=== PATIENT | female | born 1970 | race Caucasian/White ===

== ENCOUNTER → 2024-03-29 | Outpatient (REF) | payer BC ==
[2024-03-29 12:30] LABS: HEMATOCRIT 39.7 % (36.0-47.0); HEMOGLOBIN 13.4 g/dl (12.0-15.5); MEAN CORPUSCULAR HEMOGLOBIN 31.8 pg (27.0-33.0); MEAN CORPUSCULAR HGB CONC 33.8 g/dl (32.0-36.5); MEAN CORPUSCULAR VOLUME 94.1 fl (80.0-96.0); PLATELET COUNT, AUTOMATED 344 10^3/uL (150-450); RED BLOOD COUNT 4.22 10^6/uL (4.00-5.40); WHITE BLOOD COUNT 10.2 10^3/uL (4.0-10.0)
[2024-03-29 12:49] LABS: ERYTHROCYTE SEDIMENTATION RATE 9 mm/hr (0-30)
[2024-03-29 12:56] LABS: ALBUMIN 4.2 G/DL (3.2-5.2); ALKALINE PHOSPHATASE 80 U/L (46-116); ALT/SGPT 26 U/L (7.0-40); AST/SGOT 16 U/L (<34); BILIRUBIN,TOTAL 0.7 MG/DL (0.3-1.2); BLOOD UREA NITROGEN 23 MG/DL (9-23); CALCIUM LEVEL 9.2 MG/DL (8.5-10.1); CARBON DIOXIDE LEVEL 27 MMOL/L (20-31); CHLORIDE LEVEL 104 MMOL/L (98-107); CHOLESTEROL LEVEL 248 MG/DL (<200); CHOLESTEROL RISK RATIO 4.29 (<5); CREATININE FOR GFR 0.79 MG/DL (0.55-1.30); GLOMERULAR FILTRATION RATE > 60.0 (>51); GLUCOSE, FASTING 91 MG/DL (60-100); HDL CHOLESTEROL 57.8 MG/DL (>40); NON-HDL-C 190.2 MG/DL; POTASSIUM SERUM 4.6 MMOL/L (3.5-5.1); SODIUM LEVEL 138 MMOL/L (136-145); TOTAL PROTEIN 7.2 G/DL (5.7-8.2); TRIGLYCERIDES LEVEL 156 MG/DL (<150)
== END ==
LOC: M SFHCCLAY 08:14
PROVIDERS: ATTEND Physician Assistant
DX: I10 Essential (primary) hypertension (principal); E78.5 Hyperlipidemia, unspecified; M54.42 Lumbago with sciatica, left side

== ENCOUNTER → 2024-03-29 | Outpatient (CLI) | payer BC | LOC: M CLY 08:20 | PROVIDERS: ATTEND Physician Assistant | DX: M54.42 Lumbago with sciatica, left side (principal) ==

== ENCOUNTER → 2024-10-16 | Outpatient (REF) | payer BC | LOC: M SFHCCLAY 15:57 | PROVIDERS: ATTEND Family Medicine | DX: Z53.9 Procedure and treatment not carried out, unspecified reason (principal) ==

== ENCOUNTER → 2024-10-17 | Outpatient (REF) | payer BC | LOC: M SFHCCLAY 17:15 | PROVIDERS: ATTEND Family Medicine | DX: R19.7 Diarrhea, unspecified (principal) ==